=== PATIENT | female | born 1960 | race Caucasian/White ===

== ENCOUNTER 2019-07-25 11:57 | Inpatient (IN) | payer OTHER ==
[~2019-07-25] VITALS: Ht 157.4 cm; Wt 71.2 kg
[2019-07-25] MEDS ORDERED: FERROUS SULFAT325 MG PO (12:32)
[2019-07-25] MEDS ORDERED: PERPHENAZINE4 M1 PO (12:33)
[2019-07-25] MEDS ORDERED: GLUCOPHAGE500 M1 PO (12:34)
[2019-07-25] MEDS ORDERED: FLUVOXAMINE100 MG PO (12:36)
[2019-07-25] MEDS ORDERED: COGENTIN0.5 MG PO (12:39)
[2019-07-25] MEDS ORDERED: TRAZODONE50 MG PO (12:40)
[2019-07-25] MEDS ORDERED: SENOKOT8.6 MG PO (12:41)
[2019-07-25] MEDS ORDERED: ZOCOR20 MG PO (12:41)
[2019-07-25] MEDS ORDERED: LISINOPRIL20 MG PO (12:43)
[2019-07-25] MEDS ORDERED: MELATONIN3 M3 PO (12:43)
[2019-07-25] MEDS ORDERED: VISTARIL50 MG PO (12:44)
[2019-07-25] MEDS ORDERED: INVEGA SUSTENN234 MG IM (13:18)
[2019-07-25 15:32] VITALS: BP 117/86
--- NOTE | 2019-07-25 16:21 | NUR ---
DR PACK UPDATED ON NEW PT
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
[2019-07-25 17:10] LABS: BACTERIA TRACE; BILIRUBIN NEGATIVE (NEGATIVE); BLOOD NEGATIVE (NEGATIVE); CLARITY CLEAR (CLEAR); COLOR YELLOW (YELLOW); EPITHELIAL CELLS 16-20; GLUCOSE NEGATIVE (NEGATIVE); KETONE NEGATIVE (NEGATIVE); LEUKO ESTERASE NEGATIVE (NEGATIVE); NITRITE NEGATIVE (NEGATIVE); PH 7.5 (5.0-9.0); UROBILINOGEN 0.2 E.U./dl (0.2-1.0); WBC 0-2 wbc/hpf (0-5)
--- NOTE | 2019-07-25 17:51 | NUR ---
ZEINAB MOTA a 58 year old F admitted via stretcher from the ADMITTING as a emergency 72 hr. hold admission. Arrived on unit at 1525. ALLERGIES: NKA. Vital signs are: [id number] 117/86. The client signed the following forms with stated understanding: Authorization For The Release of Medical Information, Clothing List, Consent and Release Forms/Receipt of Rights, Acknowledgement of Advance Directive Information, Behavioral Health Consent Form, and Informed Consent of Medications. Patient was pink slipped to the senior behavioral health unit. Admitted under the services of Dr. BHAVESH MOSLEY,[facility]. A search was conducted and hazardous articles were removed. Client was oriented to the unit. BURAK ARANDA
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
[2019-07-25 20:00] VITALS: BP 118/61
--- NOTE | 2019-07-25 22:15 | NUR ---
P--ANXIETY, PREOCCUPIED WITH ANABAPTISM, HER CLOTHING AND GETTING A GUARDIAN I--DISCUSSED ALL MEDICATIONS. GAVE HER 1:1 TIME TO VENT. REVIEWED DAYS EVENTS ASSISTED WITH PM CARE SUPPLIES. OFFERED PM SNACK. CONFIRMED SHE WILL REVIEW ALL MEDICATIONS IN MORNING WITH DOCTOR OR FULL TIME. REASSURED HER SHE WOULD SEE CASEMANAGEMENT AND VISION THERAPIST R-I TAKE MORE MEDICINES THAN THIS. I NEED MELATONIN TO SLEEP. WHERE ARE MY CLOTHES, THEY STOLE MY CLOTHES FROM ME AT THE OTHER PLACE. I DON'T WANT TO GO BACK THERE. I NEED SOMEWHERE I CAN GET THE HELP I NEED AND BE ABLE TO GO OUT AND DO THINGS. I NEED A GUARDIAN AND TO TALK TO SOCIAL SERVICE AND CASEMANAGEMENT ABOUT WHERE TO LIVE AND OTHER THINGS. REFUSED PM SNACK PROVIDED. P--MONITOR FOR CHANGES IN MOOD/BEHAVIOR. MONITOR Q15 MIN AND PRN FOR SAFETY. BE AVAILABLE TO ALL SUPPORT NEEDS.
--- NOTE | 2019-07-25 22:15 | NUR ---
P--ANXIETY, PREOCCUPIED WITH ORTHODOX, HER CLOTHING AND GETTING A GUARDIAN I--DISCUSSED ALL MEDICATIONS. GAVE HER 1:1 TIME TO VENT. REVIEWED DAYS EVENTS. ASSISTED WITH PM CARE SUPPLIES. OFFERED PM SNACK. CONFIRMED SHE WILL REVIEW ALL MEDICATIONS IN MORNING WITH DOCTOR OR NET DEVELOPER ARCHITECT. REASSURED HER SHE WOULD SEE CASEMANAGEMENT AND MACHINE BASTER R-I TAKE MORE MEDICINES THAN THIS. I NEED MELATONIN TO SLEEP. WHERE ARE MY CLOTHES, THEY STOLE MY CLOTHES FROM ME AT THE OTHER PLACE. I DON'T WANT TO GO BACK THERE. I NEED SOMEWHERE I CAN GET THE HELP I NEED AND BE ABLE TO GO OUT AND DO THINGS. I NEED A GUARDIAN AND TO TALK TO SOCIAL SERVICE AND CASEMANAGEMENT ABOUT WHERE TO LIVE AND OTHER THINGS. REFUSED PM SNACK PROVIDED. P--MONITOR FOR CHANGES IN MOOD/BEHAVIOR. MONITOR Q15 MIN AND PRN FOR SAFETY. BE AVAILABLE TO ALL SUPPORT NEEDS.
--- NOTE | 2019-07-26 00:35 | NUR ---
DR DUBON NOTIFED OF MEDICAL MEDS NEEDING ORDERED.
--- NOTE | 2019-07-26 00:38 | NUR ---
DR DUBON NOTIFIED THAT MEDICAL MEDS NEED ORDERED
--- NOTE | 2019-07-26 02:10 | NUR ---
24 HR chart check completed.
--- NOTE | 2019-07-26 05:50 | NUR ---
SLEPT 4-5 HOURS BROKEN. DIFFICULTY WITH FALLING ASLEEP BUT APPEARED TO SLEEP WELL PAST 2AM
--- NOTE | 2019-07-26 05:56 | NUR ---
24 HR chart check completed.
[2019-07-26 06:04] LABS: ALBUMIN 3.4 gm/dl (3.1-4.5); ALKALINE PHOSPHATASE 66 U/L (45-117); BUN 11 mg/dl (7-24); CHLORIDE 107 mmol/L (98-107); CHOLESTEROL 158 mg/dL (<200); CREATININE 0.83 mg/dL (0.55-1.02); HDL CHOLESTEROL 74 mg/dl (40-60); LDL CHOLESTEROL 71 mg/dL (9-159); POTASSIUM 4.1 mmol/L (3.5-5.1); SGOT/AST 15 IU/L (3-35); SGPT/ALT 28 U/L (12-78); SODIUM 139 mmol/L (136-145); TOTAL PROTEIN 6.9 gm/dL (6.4-8.2); TRIGLYCERIDES 63 mg/dl (<150); VLDL CHOLESTEROL 13 mg/dL (6-40)
[2019-07-26 06:13] LABS: BASO # 0.1 10*3/uL (0.0-0.1); BASO % 1.2 % (0.0-1.0); EOS # 0.1 10*3/uL (0.0-0.4); EOS % 1.6 % (1.0-4.0); HEMATOCRIT 35.5 % (37.0-47.0); LYMPH # 2.2 10*3/uL (1.3-4.4); LYMPH % 38.7 % (27.0-41.0); MEAN CELL VOLUME 87.9 fl (81.0-99.0); MEAN CORPUSCULAR HGB 29.5 pg (27.0-31.0); MEAN CORPUSCULAR HGB CONC 33.5 g/dl (33.0-37.0); MEAN PLATELET VOLUME 9.7 fl (9.6-12.3); MONO # 0.5 10*3/uL (0.1-1.0); MONO % 7.8 % (3.0-9.0); NEUT # 2.9 10*3/uL (2.3-7.9); NEUT % 50.7 % (47.0-73.0); PLATELET COUNT AUTOMATED 280 10*3/uL (130-400); RED BLOOD COUNT 4.04 10*6/uL (4.10-5.10); WHITE BLOOD COUNT 5.8 10*3/uL (4.8-10.8)
[2019-07-26 07:17] VITALS: BP 104/62
--- NOTE | 2019-07-26 14:48 | NUR ---
PSYCHOSOCIAL HX COMPLETED THIS DATE.
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
[2019-07-26 20:02] VITALS: BP 107/69
--- NOTE | 2019-07-27 00:38 | NUR ---
P--PARANOID, GRANDIOSE, PREOCCUPIED I--DISCUSED DAYS EVENTS. PROVIDED 1:1 REDIRECTION IN CERTAIN AREAS NOT EFFECTIVE. REVIEWED MEDICATION. SNACK AN FLUIDS OFFERED. EMOTIONAL SUPPORT PROVIDED R--LOOK HER IN THE BIBLE IT SAYS TO COMB HAIR AND I WAS COMBING MY HAIR AT THE TIME I READ THIS. THIS HAPPENS ALL THE TIME. IT SHOWS GOD IS HERE PROTECTING ME. ALOT OF GUYS OUT THERE CAN HEAR MY VOICE AND IT TAKES THEM TO GOD. YES OTHERS OUT THERE CAN HEAR ME TALK. I HAD SUCH A GOOD DAY BECAUSE I TAKE MY BIBLE EVERYWHERE. IT HAS SAVED MY LIFE AT TIMES WHEN I HAVE BEEN IN THE HOSPITAL. I DON'T WANT TO GO BACK TO THAT PLACE, I WANT TO LIVE ON MY OWN. P--MONITOR FOR CHANGES IN MOOD/BEHAVIOR. MONITOR Q 15 IN AND PRN FOR SAFETY. REDIRECT CLIENT NEEDED.
--- NOTE | 2019-07-27 03:01 | NUR ---
24 HR chart check completed.
--- NOTE | 2019-07-27 05:36 | NUR ---
HAS BEEN SLEEPING SINCE 2230PM. MOVES SELF AROUND IN BED. NO PROBLEMS NOTED
--- NOTE | 2019-07-27 06:35 | NUR ---
HAS BEEN SLEEPING SINCE 2230PM. MOVES SELF AROUND IN BED. NO PROBLEMS NOTED
[2019-07-27 07:33] VITALS: BP 136/88
--- NOTE | 2019-07-27 08:56 | NUR ---
PHYSICAL THERAPY Nursing screen received and chart reviewed. Patient walking throughout BHU with steady gait, per nursing notes. Please order PT evaluation if decline in functional mobility presents. Thank you. Belle Boggs,PT,DPT
--- NOTE | 2019-07-27 09:53 | NUR ---
Nursing screen received and chart reviewed. Patient admitted from [facility] and per nursing notes is walking throughout unit with a steady gait. If patient has a decline in ADLs, please send OT orders. Thank you. Tressa Frausto, OTR/L
--- NOTE | 2019-07-27 11:00 | NUR ---
DR VALERO ON UNIT TO ASSESS PT, UPDATE PROVIDED.
--- NOTE | 2019-07-27 11:32 | NUR ---
AM GROUP PT WAS IN BED RESTING AT THE BEGINNING OF GROUP AND REFUSED ASSESSMENT OR TO ATTEND GROUP THERAPY. WILL ATTEMPT ASSESSMENT THIS AFTERNOON.
--- NOTE | 2019-07-27 11:46 | NUR ---
P: PT ISOLATIVE TO ROOM, REFUSING TO PARTICIPATE IN GROUPS/ACTIVITIES. PT MOOD IS DEPRESSED. PT LABILE GOING FROM HOEPLESS/HELPELESS AND DEPRESSED TO EUTHYMIC. PT ALSO OBSERVED TO BE LAUGHING INAPPROPRIATE AT TIMES. PT REGIOUSLY PREOCCUPIED, READING HER BIBLE CONTINOUSLY AND TELLING STAFF THAT GOD TALKS TO HER. I: PROVIDE EMOTIONAL SUPPORT AND 1:1 FOR PT TO VOICE FEELINGS, ENCOURAGE GROUP PARTICIPATION AND SOCIALIZTION, PRESENT REALITY AD RE-ORIENT NEEDED. R: PT ALERT TO PERSON, PLACE AND TIME, SOMEWHAT SITUATION. PT MED COMPLIANT WITHOUT DIFFICULTY, MED EDUCATION PROVIDED. PT CONTINUES TO REFUSE TO PARTICIPATE IN GROUPS/ACTIVITIES. PT MOOD REMAINS LABILE. PT AMBULATORY THROUGHOUT UNIT, GAIT STEADY. PT CONTINENT OF BOWEL AND BLADDER. PT DENIES ANY SUICIDAL THOUGHTS. PT REMAINS RELIGIOUSLY PREOCCUPOED. P: MONITOR PT BEHAVIORS ON Q15 MIN SAFETY CHECKS, ENCOURAGE MED COMPLIANCE AND PROVIDE MED EDUCATION, ENCOURAGE GROUP PARTICIPATION AND SOCIALIZATION, PRESENT REALITY AND RE-ORIENT NEEDED.
--- NOTE | 2019-07-27 15:40 | NUR ---
PM GROUP PT CHOSE NOT TO ATTEND AFTERNOON GROUP THERAPY. PT WAS IN BED RESTING.
--- NOTE | 2019-07-27 17:23 | NUR ---
MESSAGE LEFT FOR PT GUARDIAN TO RETURN CALL FOR CONSENT FOR ADMISSION, PT IS CURRENTLY HERE ON A PINK SLIP. WILL AWAIT A RETURN CALL.
--- NOTE | 2019-07-27 17:29 | NUR ---
PTS GUARDIAN, ROMA BALDWIN, RETURNED CALLED AND VERBAL CONSENTS RECEIVED, WITNESSED BY 2 GLENNY CASTREJON.
[2019-07-27 20:00] VITALS: BP 114/60
--- NOTE | 2019-07-28 03:34 | NUR ---
P-ISOLATIVE I-ASSESS ORIENTATION, MOOD, AND BEHAVIOR. PROVIDE 1:1 WITH THERAPEUTIC INTERVENTIONS. ENCOURAGE MEDICATION COMPLIANCE AND EDUCATE. MONITOR SLEEP. R- PATIENT ALERT AND ORIENTED X4. PT ISOLATIVE TO ROOM AND BED SINCE BEGINNING OF SHIFT, ONLY COMING DOWN FOR SNACK. PT CALM, COOPERATIVE, INTERACTIVE WITH STAFF. PT STATED THAT SHE WAS DOING GOOD TODAY AND ONLY WANTS TO DEAL WITH POSITIVE PEOPLE FROM NOW ON. SUPPORT PROVIDED. PT DENIES SI/HI, HALLUCINATIONS, OR PAIN. NO NOTED RESPONDING TO INTERNAL STIMULI. MEDICATION COMPLIANT WITHOUT DIFFICULTY AFTER REVIEW. PT AMBULATORY WITH A STEADY GAIT, INDEPENDENT IN ADL'S, CONTINENT OF BOWEL AND BLADDER. PT LAYING DOWN WITH EYES CLOSED, RESPIRATIONS EASY AND REGULAR, NO SIGNS OR SYMPTOMS OF DISTRESS NOTED. P-CONTINUE TO MONITOR MOOD AND BEHAVIORS. MAINTAIN Q 15 MIN CHECKS AND PRN FOR SAFETY.
--- NOTE | 2019-07-28 05:55 | NUR ---
PATIENT SLEPT APPROX 9 HOURS UNINTERRUPTED. NO SIGNS OR SYMPTOMS OF DISTRESS NOTED.
[2019-07-28 07:48] VITALS: BP 117/80
--- NOTE | 2019-07-28 08:00 | NUR ---
Patient sitting quietly. Respirations easy and regular. Vital signs stable. No overt distress. KENNEDY ALLISON
--- NOTE | 2019-07-28 11:34 | NUR ---
AM GROUP PT CHOSE NOT TO ATTEND MORNING GROUP THERAPY. PT WAS IN BED RESTING.
--- NOTE | 2019-07-28 15:31 | NUR ---
Treatment Plan meeting was held with Dr. Kim, INGA Dougherty, RN, AT, INFORMATION MANAGEMENT SPECIALIST-S and Electronics Hardware Design Engineer. Plan for discharge next week. Pt. will require alternate placement due to inability to return to Assisted.
--- NOTE | 2019-07-28 15:40 | NUR ---
PM GROUP PT ATTENDED AFTERNOON GROUP THERAPY AND PARTICIPATED BY READING HER BIBLE. PT WAS QUIET AND ON TASK. PT EXPRESSED NO DELUSIONS OR PARANOIA WHILE IN GROUP. PT IS LOUD AND INTRUSIVE, UNAWARE OF SOCIAL ETIQUETTE, BUT PLEASANT OTHERWISE.
--- NOTE | 2019-07-28 17:30 | NUR ---
PT RELIGIOUSLY PREOCCUPIED. CARRIES HER BIBLE UP AND DOWN THE HALLS. PT NOTED TELLING THE MEDICAL DOCTOR "I DON'T NEED TO TALK TO YOU. I HAVE GOD". PT ENCOURAGED TO PARTICIPATE IN GROUP THERAPY FOR SOCIALIZATION AND SUPPORT. PT ENCOURAGED TO SPEND TIME OUT OF ROOM. PT ENCOURAGED TO VERBALIZE ANY INTERNAL THOUGHT PROCESSES THEY OCCUR. PT STATES THAT "ALL I NEED IS PRAYER". PT HAS BEEN LESS ISOLATIVE THIS SHIFT, ATTENDING GROUP, BUT NOT ACTIVELY PARTICIPATING, INSTEAD READING THE BIBLE. PT HAS HAD NO OVERT S/S OF ATTENDING TO INTERNAL STIMULI. PT DOES STATE THAT SHE IS PARANOID PEOPLE ARE OUT TO GET HER. PT PROVIDED WITH 1:1 AND SUPPORT. Q15 MIN MONITORING PER POLICY. WILL CONTINUE TO ENCOURAGE SOCIALIZATION FOR PEER SUPPORT. WILL ENCOURAGE MEDICATION COMPLIANCE.
[2019-07-28 20:00] VITALS: BP 123/70
--- NOTE | 2019-07-28 23:02 | NUR ---
Patient alert and oriented x 4. Mood calm and cooperative. Denies SI/HI. Denies any hallucinations at this time. No signs of any responding to internal stimuli noted. Patient compliant with HS medications without any difficulty. Patient refused skin assessment to be done. Provided 1:1 for emotional support. Will continue to monitor moods/behaviors. Q 15 minute safety checks continued and maintained. See [facility] flowsheet for further documentation.
--- NOTE | 2019-07-29 01:45 | NUR ---
24 HR chart check completed.
--- NOTE | 2019-07-29 05:33 | NUR ---
Patient slept approx. 7 hours throughout shift. Q 15 minute safety checks continued and maintained.
--- NOTE | 2019-07-29 07:30 | NUR ---
Patient eating breakfast in dining room with peers at this time. Respirations easy and regular. Vital signs stable. No overt distress. ROSY BURT and team on unit to see pt at this time.
[2019-07-29 08:00] VITALS: BP 118/78
--- NOTE | 2019-07-29 08:30 | NUR ---
Treatment Plan meeting was held via Telephone with Dr. Kim, INGA Dougherty, RN, AT, EDITORIAL CARTOONIST-S and Dividend Clerk. Plan for discharge Next Week. Working on Care Home Placement For Patient.
--- NOTE | 2019-07-29 11:26 | NUR ---
INVEGA SUSTENNA 156MG IM TO RIGHT DELTOID, TOLERATED WELL.
--- NOTE | 2019-07-29 11:38 | NUR ---
AM GROUP PT ATTENDED MORNING GROUP THERAPY AND PARTICIPATED BY READING HER BIBLE. PT WAS QUIET AND KEPT TO HERSELF ONLY MAKING OCCATIONAL COMMENTS RELATIVE TO THE GROUP CONVERSATION. PT EXPRESSED NO DELUSIONS OR OVERLY GNOSTICISM STATEMENTS.
--- NOTE | 2019-07-29 13:39 | NUR ---
Met with pt individually. Pt voiced concern that she was not helping people enough as God would expect her to do. Discussed this further. Pt then changed the subject to where she is going to live and about her cat. Explained to pt that her guardian is requesting that another penitentiary be found for pt. Asked pt further about pt's cat and learned that pt has not had her cat for over a year from when she lived at [facility]. Pt states that she is not sure who has her cat. Informed pt that this commercial insurance underwriter will ask pt's guardian about the cat. Pt spoke briefly about her family and stated that she wants nothing to do with them. She also stated that she has no one but God and that is all that she wants.
--- NOTE | 2019-07-29 15:39 | NUR ---
PM GROUP/DREAM CATCHERS PT ATTENDED GROUP FOR A SHORT PERIOD AND CHOSE NOT TO PARTICIPATE. PT SAT AT A TABLE AND STATED, "I DON'T WANT TO GO BACK TO A HALFWAY. I WANT AN APARTMENT OF MY OWN. I WOULD EAT [employer]NE [employer]US[employer] AND [employer] PIZZA." PT GOT UP AND LEFT THE DAYROOM AND DID NOT RETURN.
--- NOTE | 2019-07-29 16:08 | NUR ---
Shift chart check completed.
--- NOTE | 2019-07-29 16:24 | NUR ---
P- Isolative/withdrawn, religiously preoccupied I- Orientation, mood and behaviors assessed. Assessed pt for SI/HI, intent or plan. Assessed pt for s/s hallucinations, paranoia and/or delusions. Medications administered as per physician's orders. Assistance with ADL care provided as needed. Encouraged pt to attend and participate in rico milieu groups and activities. R- Pt is A&Ox4. Memory appears to be intact. Resps easy and even on room air. Mood is stable, affect broad range. Speech is WNL and coherent, able to make needs known without difficulty. Pt denies SI/HI, intent or plan. Pt denies hallucinations, no response to internal sitmuli noted. No paranoia noted. Pt continues to be religiously preoccupied. Pt is medication compliant without difficulty. Pt recieved Invega Sustenna 156mg injection today, pt states "I'm so glad I get that shot today, it really helps me". Pt remains isolative/withdrawn, pt encouraged to come to groups. Pt attended groups today but kept to self in the corner of the room reading her Bible. No aggressive behaviors. No distress noted. P- Plan to continue current tx, continue to monitor mood and behaviors, provide appropriate reorientation, redirection and 1:1 as needed. Continue to encourage medication compliance as well as group attendance and participation.
[2019-07-29 19:02] VITALS: BP 105/63
--- NOTE | 2019-07-29 22:13 | NUR ---
Patient alert and oriented x 4. Mood calm and cooperative. Denies SI/HI. Denies any hallucinations at this time. No signs of any responding to internal stimuli noted. Patient isolative to self to her room and only coming out for snacks. Patient compliant with HS medications without any difficulty. Patient refused skin assessment to be done. Provided 1:1 for emotional support. Will continue to monitor moods/behaviors. Q 15 minute safety checks continued and maintained. See [facility] flowsheet for further documentation.
--- NOTE | 2019-07-30 00:18 | NUR ---
24 HR chart check completed.
--- NOTE | 2019-07-30 05:25 | NUR ---
Patient slept approx. 5 hours throughout shift. Q 15 minute safety checks continued and maintained.
[2019-07-30 07:44] VITALS: BP 107/63
--- NOTE | 2019-07-30 08:00 | NUR ---
Patient in dining room with peers. Respirations easy and regular. Vital signs stable. No overt distress. KENNEDY ALLISON
--- NOTE | 2019-07-30 08:30 | NUR ---
Treatment Plan meeting was held via Telephone with Dr. Kim, RN, AT, INJECTION MOLDING MACHINE SETTER-S and Key Person. Plan for discharge Next week or Week after. Pt. requires alternate [facility] Setting.
--- NOTE | 2019-07-30 09:40 | NUR ---
DR. VALERO AND TEAM ON UNIT TO ASSESS PT AT THIS TIME.
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
--- NOTE | 2019-07-30 11:14 | NUR ---
Spoke to Shahriar Velasco, guardian of pt. Informed him that Odilia from [facility] was inquiring about pt's payer source. Provided Shahriar with contact information for Odilia. Shahriar stated that he would call her today. Also Shahriar provided update about Romaine, pt's previous cat. This public relations writer will share the update with pt.
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
--- NOTE | 2019-07-30 14:25 | NUR ---
PT IN GROUP AT THIS TIME. OFFERS NO COMPLAINTS. KENNEDY ALLISON RN
--- NOTE | 2019-07-30 14:57 | NUR ---
PT RELIGIOUSLY PREOCCUPIED, FIXATED ON HER CAT, AND PARANOID ABOUT FAMILY STEALING HER MONEY. PT ENCOURAGED TO PARTICIPATE IN GROUP THERAPY FOR SOCIALIZATION AND SUPPORT. PT ENCOURAGED TO SPEND TIME OUT OF ROOM. PT ENCOURAGED TO VERBALIZE ANY INTERNAL THOUGHT PROCESSES THEY OCCUR. PT RECEPTIVE TO 1:1. STATES THAT SHE IS UPSET ABOUT HAVING A GUARDIAN, STATING "ONLY GOD IS THE INTEGRATED MARKETING INTERN. DOES EVERYONE KNOW THAT? ONLY GOD IS THE INTEGRATED MARKETING INTERN". PT ALSO REQUESTING TO VISIT HER CAT, STATING "WE BOTH NEED TO SEE EACH OTHER". PT ASKING TO LEAVE TO SEE THE CAT OR FOR THE CAT TO COME HERE, EDUCATED ON UNIT AND HOSPITAL POLICIES, RECEPTIVE AT THIS TIME. PT ALSO DISCUSSING PARANOIA OVER FAMILY STEALING FROM HER MONTHLY CHECKS, PT ABLE TO REDIRECT SELF STATING "I'M NOT GOING BACK THERE ANYWAY". EMOTIONAL SUPPORT PROVIDED. Q15 MIN MONITORING PER POLICY. WILL CONTINUE TO ENCOURAGE SOCIALIZATION FOR PEER SUPPORT. WILL ENCOURAGE MEDICATION COMPLIANCE.
--- NOTE | 2019-07-30 15:29 | NUR ---
PM GROUP/ART AND MUSIC PT ATTENDED AFTERNOON GROUP THERAPY AND PARTICIPATED BY READING HER BIBLE AND CONVERSING WITH A PEER. PT IS VERY LOUD AND INTRUSIVE. PT EXPRESSED PARANOID DELUSIONS INVOLVING JAM GOSS AND PEOPLE STEALING HER EARRINGS AND CAT.
[2019-07-30 20:00] VITALS: BP 118/70
--- NOTE | 2019-07-30 23:00 | NUR ---
P-ISOLATIVE, RESTORATIONIST PREOCCUPATION I-1:1 PROVIDED, REDIRECT, ADMINISTER MEDS, MONITOR SLEEP R-PT ISOLATIVE TO HER ROOM & READING HER BIBLE, ASKING RN ABOUT PERSONAL RESTORATIONIST BELIEFS. RECEPTIVE TO REDIRECTION. ALERT & ORIENTED X 4. PLEASANT INTERACTIONS. ALSO TALKED ABOUT HER CAT, LUKE & STATED THAT SHE JUST FOUND OUT HE HAS BEEN FOUND AFTER A YEAR & A HALF. CAME TO DINING ROOM BRIEFLY & ATE SNACK. COMPLIANT WITH MEDICATIONS. CONTINUES TO REFUSE SKIN ASSESSMENT. INDEPENDENT WITH ADLS P-CONTINUE TO MONITOR & REDIRECT NEEDED.
--- NOTE | 2019-07-31 00:32 | NUR ---
24 HR chart check completed.
--- NOTE | 2019-07-31 05:22 | NUR ---
PT SLEPT 2303
[2019-07-31 07:55] VITALS: BP 114/67
--- NOTE | 2019-07-31 08:30 | NUR ---
Treatment Plan meeting was held via Telephone with Dr. Kim, RN, At, [facility] and Yarder. Plan for discharge is uncertain at this time. Dr. Kim is aware that Pt. is essentially Homeless. She is unable to return to the [facility] that she was living in Prior to Admit to [facility]. Pt. Guardian has requested that Pt. remain in [facility]. [facility] is the only other [place] [facility] Listed on Residential List available. Will Work with Guardian on alternate Placement.
--- NOTE | 2019-07-31 10:45 | NUR ---
Left Message for Odilia Jenkins at [facility] to follow Referral and Discuss Discharge Planning and Inquire if she had spoken to the Legal Guardian About possible Admission.
--- NOTE | 2019-07-31 11:37 | NUR ---
AM GROUP PT DID NOT ATTEND MORNING GROUP THERAPY. PT WAS IN BED RESTING.
--- NOTE | 2019-07-31 14:17 | NUR ---
Facetime interview Set up with Ceci hurt for 2:00 p.m. for Odilia from facility to meet patient face to face.
--- NOTE | 2019-07-31 15:00 | NUR ---
Facilitated Phone Interview with Patient and Odilia from [facility]. Will Follow with Odilia on Saturday for follow up.
--- NOTE | 2019-07-31 15:33 | NUR ---
PM GROUP PT ATTENDED AFTERNOON GROUP THERAPY LATE AND PARTICIPATED BY READING HER BIBLE. PT WAS VERY EXCITED AT THE PROSPECT OF FINDING A HOME. PT EXPRESSED NO GRANDIOSITY BUT DID STATE, "ALDEN, PEOPLE ARE TRYING TO KILL ME. THEY ARE SAYIGN THAT MY CAT IS AT A FARM AND THEY ARE TRYING TO TRICK ME INTO GOING THERE SO THEY CAN KILL ME." PT WAS REASSURED AND WAS CONTENT WITH THAT.
--- NOTE | 2019-07-31 18:17 | NUR ---
pt more isolative this shift. pt spent much of shift in her room reading her Bible. pt does discuss her excitement at finding a new home and that she is hopeful this place will work out for her. pt has expressed no grandiose delusions or hallucinations this shift. pt is pleasant and cooperative at this time. medication compliant without difficulty. showered independently today. q 15 min monitoring per policy for safety.
[2019-07-31 19:35] VITALS: BP 112/81
--- NOTE | 2019-07-31 19:38 | NUR ---
24 HR chart check completed.
--- NOTE | 2019-07-31 20:39 | NUR ---
P-ORTHODOX PREOCCUPATION I-1:1 PROVIDED, REDIRECT, ADMINISTER MEDS, MONITOR SLEEP R-PT MORE SOCIAL READING HER BIBLE TO HERSELF WHILE SITTING IN THE DINING ROOM. AGAIN ASK THIS RN ABOUT HER ORTHODOX BELIEFS & HAD TO BE REDIRECTED & WAS RECEPTIVE. ALERT & ORIENTED X 4. PLEASANT INTERACTIONS & ELATED AT TIMES WHEN SPEAKING TO STAFF. ATE SNACK. COMPLIANT WITH MEDICATIONS. CONTINUES TO REFUSE SKIN ASSESSMENT. INDEPENDENT WITH ADLS. P-CONTINUE TO MONITOR & REDIRECT NEEDED.
--- NOTE | 2019-08-01 05:38 | NUR ---
PT HAS SLEPT PAST 29
[2019-08-01 07:44] VITALS: BP 131/82
--- NOTE | 2019-08-01 07:45 | NUR ---
Patient eating breakfast in dining room with peers. Respirations easy and regular. Vital signs stable. No overt distress. ORSY BURT
--- NOTE | 2019-08-01 10:23 | NUR ---
P- Isolative/withdrawn, remains religiously preoccupied, mood appears slightly depressed, pt states "I feel like I'm in a world of my own, like no one understands me". I- Orientation, mood and behaviors assessed. Assessed pt for SI/HI, intent or plan. Assessed for s/s hallucinations, paranoia and/or delusions. Medications administered as per physician's orders. Encouraged pt to attend and participate in rico milieu. Pt is independent with ADL care. R- Pt is alert and oriented x4. Mood appears slightly depressed, pt states "I feel like I'm in a world of my own, like no one understands me". Pt made minimal eye contact with this RN during interview this AM. Affect blunted. Speech is WNL and coherent, able to make needs known without difficulty. Pt denies feelings of hopelessness. Pt denies SI/HI, intent or plan. Pt denies hallucinations, no response to internal stimuli noted. Pt is medication compliant without difficulty. Isolative/withdrawn this morning, napping intermittently in her room. Pt continues to be religiously preoccupied at times, however, pt is calm, pleasant and cooperative. No distress noted. P- Plan to continue current treatment, continue to monitor mood and behaviors, provide appropriate reorientation, redirection and 1:1 as needed.
[2019-08-01 19:25] VITALS: BP 104/54
--- NOTE | 2019-08-01 20:22 | NUR ---
24 HR chart check completed.
--- NOTE | 2019-08-01 21:00 | NUR ---
P-ISOLATIVE, SAMARITAN PREOCCUPATION I-1:1 PROVIDED, ADMINISTER MEDS, MONITOR SLEEP R-PT SAT IN THE DINING ROOM THIS EVENING AT A TABLE BY HERSELF READING HER BIBLE. ALERT & ORIENTED X 4. PLEASANT INTERACTIONS. STATES SHE IS EXCITED FOR SATURDAY TO GET HERE BECAUSE SHE GETS TO GO TO HER NEW PLACE. KEPT TO HERSELF THIS EVENING. NOTED TO ROCK BACK & FORTH WHILE SITTING IN BED. DENIED FEELING ANXIOUS & STATED SHE HAS ALWAYS DONE THAT, "IT CALMS ME". ATE SNACK. COMPLIANT WITH MEDICATIONS. CONTINUES TO REFUSE SKIN ASSESSMENT. INDEPENDENT WITH ADLS. P-CONTINUE TO MONITOR & REDIRECT NEEDED.
--- NOTE | 2019-08-02 06:03 | NUR ---
PT WENT TO HER ROOM APPROX 2100 & SAT UP QUIETLY READING HER BIBLE UNTIL SHE WENT TO SLEEP @ 0015.
[2019-08-02 07:20] VITALS: BP 130/82
--- NOTE | 2019-08-02 07:33 | NUR ---
Patient resting quietly with no c/o discomfort. Respirations easy and regular. Vital signs stable. No overt distress. ROSY BURT
--- NOTE | 2019-08-02 10:45 | NUR ---
and team on unit to see pt at this time.
[2019-08-02 19:48] VITALS: BP 100/72
--- NOTE | 2019-08-03 01:54 | NUR ---
P: Sikhism Delusions, I: Medications, redirections, offer distractions, snacks R: Continues to read and highlight in her bible this evening, pt also restless and awake this evening in her room, with lights on and rockin in her bed while going through bible. Easily redirected for snack and interaction when approached. Able to hold conversation without preoccupation or grandiouse reactions P: continue to monitor at this time, 15 min checks, therapy, medication education. Assessing pt alertness and function. Pt went to sleep at approx 0200. Gait remains steady, medication ocmpliant
--- NOTE | 2019-08-03 02:06 | NUR ---
Pt recieved shower earlier in shift and permitted body assessment. No areas of concern noted
--- NOTE | 2019-08-03 05:13 | NUR ---
Patient slept approx. 3 hours throughout shift. Q 15 minute safety checks continued and maintained.
[2019-08-03 07:14] VITALS: BP 130/80
--- NOTE | 2019-08-03 08:30 | NUR ---
Treatment Plan meeting was held via Telephone with Dr. Kim, INGA Dougherty, RN, AT and Ophthalmology Assistant. Plan for discharge Saturday if Placement Secured. Ceci Cruz is still negotiating with Pt. Legal Guardian for placement due to Financial.
--- NOTE | 2019-08-03 10:37 | NUR ---
DR. VALERO ON UNIT TO ASSESS PATIENT.
--- NOTE | 2019-08-03 11:10 | NUR ---
Spoke with Odilia at [facility]. She is waiting communications lead back at this time from Pt. Legal Guardian Shahriar. Advised of Dr. Kim Plan to discharge on Saturday. Odilia states that she will call back once she speaks with Guardian.
--- NOTE | 2019-08-03 11:40 | NUR ---
AM GROUP PT ATTENDED MORNING GROUP THERAPY AND PARTICIPATED BY READING HER BIBLE. PT WAS QUIET AND KEPT TO HERSELF. PT WAS NOTED TO BE ROCKING IN HER CHAIR. PT EXPRESSED NO DELUSIONS OR OVERLY RELIGION STATEMENTS WHILE IN GROUP.
--- NOTE | 2019-08-03 14:05 | NUR ---
PT IS ALERT, ORIENTED X4. PLEASANT, COOPERATIVE WITH ASSESSMENT. PT MOOD IS STABLE. JEWISH PREOCCUPATION HAS DIMINISHED AND PT IS ABLE TO APPROPRIATELY INTERACT WITH STAFF AND PEERS. DENIES SI/HI, INTENT OR PLAN. APPETITE IS GOOD, PT IS MEDICATION COMPLIANT WITHOUT DIFFICULTY. Q15 MIN MONITORING PER POLCIY FOR SAFETY.
--- NOTE | 2019-08-03 15:23 | NUR ---
Shift chart check completed.
--- NOTE | 2019-08-03 15:36 | NUR ---
PM GROUP/MANICURES AND MUSIC PT ATTENDED AFTERNOON GROUP THERAPY BUT CHOSE NOT TO HAVE HER NAILS DONE. PT LISTENED TO THE MUSIC AND WAS NOTED THIS MORNING TO BE ROCKING IN HER CHAIR. PT WAS QUIET AND EXPRESSED NO DELUSIONS OR YARSANI OVERTONES.
[2019-08-03 19:31] VITALS: BP 118/74
--- NOTE | 2019-08-03 21:40 | NUR ---
Patient alert and oriented x 4. Mood calm and cooperative. Denies SI/HI. Denies any hallucinations at this time. No signs of any responding to internal stimuli noted. Patient was in dining room for snacks and was more interactive with staff and other patients. Patient compliant with HS medications without any difficulty. Patient refused skin assessment to be done. Provided 1:1 for emotional support. Will continue to monitor moods/behaviors. Q 15 minute safety checks continued and maintained. See [facility] flowsheet for further documentation.
--- NOTE | 2019-08-04 06:12 | NUR ---
Patient slept approx. 8 hours throughout shift with a few awakenings. Q 15 minute safety checks continued and maintained.
[2019-08-04 07:41] VITALS: BP 122/76
--- NOTE | 2019-08-04 08:30 | NUR ---
Treatment Plan meeting was held via telephone with Dr. Kim, INGA Dougherty, RN, AT, EXTENDED DAY TEACHER-S and Boiling Tub Operator. Plan for discharge Saturday if bed secured at [facility].
--- NOTE | 2019-08-04 11:40 | NUR ---
AM GROUP/MUSIC AND MY PT ATTENDED MORNING GROUP THERAPY AND PARTICIPATED BY READING HER BIBLE. PT WAS FOCUSED AND QUIET. PT EXPRESSED NO GRANDIOSITY NOR PENTECOSTALISM IDEATIONS WHILE IN GROUP.
--- NOTE | 2019-08-04 13:49 | NUR ---
No adverse moods or behaviors this shift. Pt is A+Ox4. Memory appears to be intact. Resps easy and even on room air. Mood appears stable, affect broad range and appropriate. Speech is WNL and coherent, able to make needs known without difficulty. Pt denies SI/HI, intent or plan. Pt reports occasionally hearing voices and some residual paranoia but states these are normal for her at her baseline. Pt denies pain/discomfort. Pt is medication compliant without difficulty. Interacts appropriately with staff and peers. No distress noted. Plan to continue current tx, continue to monitor mood and behaviors, provide appropriate reorientation, redirection and 1:1 as needed. Continue to encourage med compliance as well as group attendance and participation.
--- NOTE | 2019-08-04 16:05 | NUR ---
Shift chart check completed.
[2019-08-04 20:00] VITALS: BP 107/51
--- NOTE | 2019-08-04 22:45 | NUR ---
NO ADVERSE MOODS OR BEHAVIORS NOTED THIS SHIFT. PATIENT IS ALERT AND ORIENTED X4. MEMORY SEEMS TO BE INTACT. PATIENT STATED "I AM DOING REALLY GOOD TODAY. YOU KNOW I AM READING SOME GOOD STUFF IN MY BIBLE AND IT IS HELPING ME APPRECIATE MY LIFE EVEN MORE". SLIGHTLY EUTHYMIC. DENIES SI/HI, HALLUCINATIONS, OR PAIN. NO S/S OF INTERACTING WITH INTERNAL STIMULI. NO DELUSIONAL THOUGHT PROCESS NOTED. NO S/S OF DISTRESS NOTED, RESPS EVEN AND UNLABORED ON ROOM AIR. PATIENT REMAINS ISOLATIVE TO HER ROOM; SHE DID COME DOWN FOR SNACK, INTERACTED WITH STAFF AND PEERS, THEN WENT RIGHT BACK TO HER ROOM. MED COMPLIANT WITH EDUCATION PROVIDED ON EACH. SHOWERED. VOICES NEEDS. Q15 MINUTE CHECKS MAINTAINED FOR SAFETY.
--- NOTE | 2019-08-04 23:52 | NUR ---
24 HR chart check completed.
--- NOTE | 2019-08-05 06:55 | NUR ---
PATIENT SLEPT APPROXIMATELY 5 HOURS NOTED ON Q15 MINUTE CHECKS. NO S/S OF DISTRESS NOTED. RESPS EVEN AND UNLABORED ON ROOM AIR.
[2019-08-05 07:22] VITALS: BP 134/84
--- NOTE | 2019-08-05 07:40 | NUR ---
Met with pt this AM individually. Discussed pt's status. Pt reports that she is feeling "great." Discussed discharge plan. Spoke to pt about moving to [facility]. Informed pt that due to COVID 19 precautions, pt will need to isolate for 14 days in a private room. Further explained to pt that also because of COVID, pt will not have the freedoms of going out into the public and doing things until restrictions have been lifted. Pt voiced understanding. Pt did state that she hopes that she can at least see maria growing outside from her window. Pt was appropriate in conversation. No delusions or hallucinations were voiced during interaction.
[2019-08-05] MEDS ORDERED: INVEGA SUSTENN156 MG IM (07:47)
[2019-08-05] MEDS ORDERED: DIVALPROEX SOD500 MG PO (07:47)
[2019-08-05] MEDS ORDERED: MIRTAZAPINE15 M2 PO (07:47)
[2019-08-05] MEDS ORDERED: DIVALPROEX SOD250 MG PO (07:47)
[2019-08-05] MEDS ORDERED: HYDROXYZINE HCL25 MG PO (07:47)
[2019-08-05] MEDS ORDERED: BENZTROPINE MESY1 MG PO (07:47)
--- NOTE | 2019-08-05 08:00 | NUR ---
Patient eating breakfast in dining room with peers. Respirations easy and regular. Vital signs stable. No overt distress. ROSY BURT PHMNP-BC & updated on pt progress.
--- NOTE | 2019-08-05 08:30 | NUR ---
TREATMENT PLAN MEETING WAS HELD VIA TELEPHONE WITH DR. OSPINA, INGA WYMAN, RN, AT, CUT AND PRINT MACHINE OPERATOR-S AND RESAW FEEDER. PLAN FOR DISCHARGE SATURDAY. PT. WILL RETURN TO [facility].
--- NOTE | 2019-08-05 09:35 | NUR ---
LEFT MESSAGE FOR PT. HAIR DRESSER AT [facility] TO DISCUSS DISCHARGE PLANS AND COORDINATION OF CARE AND ADMISSION TO [facility]. [phone].
--- NOTE | 2019-08-05 10:30 | NUR ---
and team on unit to see pt at this time. Made aware pt to be discharged today or tomorrow depending on finalization of discharge plan.
--- NOTE | 2019-08-05 11:26 | NUR ---
NO ADVERSE MOODS OR BEHAVIORS THIS SHIFT. PT IS A+OX4. MEMORY APPEARS TO BE INTACT. RESPS EASY AND EVEN ON ROOM AIR. MOOD IS STABLE, EUTHYMIC, AFFECT IS BROAD RANGE AND APPROPRIATE. SPEECH IS WNL AND COHERENT, ABLE TO MAKE NEEDS KNOWN WITHOUT DIFFICULTY. PT DENIES SI/HI, INTENT OR PLAN. PT DENIES HALLUCINATIONS, NO RESPONSE TO INTERNAL STIMULI NOTED. NO PARANOIA OR DELUSIONS NOTED. PT IS PLEASANT, CALM AND COOPERATIVE. PT ENJOYS READING HER BIBLE FREQUENTLY THROUGHOUT THE SHIFT. PT IS LOOKING FORWARD TO BEING DISCHARGED TODAY OR TOMORROW. NO DISTRESS NOTED. PLAN TO CONTINUE CURRENT TX, CONTINUE TO MONITOR MOOD AND BEHAVIORS, PROVIDE APPROPRIATE REORIENTATION, REDIRECTION AND 1:1 NEEDED. CONTINUE TO ENCOURAGE MEDICATION COMPLIANCE WELL GROUP ATTENDANCE AND PARTICIPATION.
--- NOTE | 2019-08-05 11:41 | NUR ---
AM GROUP/SOCIALIZATION PT ATTENDED MORNING GROUP THERAPY AND PARTICIPATED BY SOCIALIZING WITH THIS CUSTOMER SERVICE SALES CONSULTANT AND A MALE PEER. PT HAS NO CONCEPT OF SOCIAL ETTIQUETTE. PT SPEAKS LOUDLY AND INTERUPTS OTHERS WHEN THEY ARE SPEAKING. PT ALSO SPEAKS OUT OF CONTEXT, MOSTLY WITH LATTER DAY UNDERTONES. PT EXPRESSED NO PARANOIA OR GRANDIOSITY WHILE IN GROUP.
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
--- NOTE | 2019-08-05 15:26 | NUR ---
Call placed to [facility]. Pt. Mercury Cell Cleaner is off today and will return tommorow.
--- NOTE | 2019-08-05 15:32 | NUR ---
KATY SHANNON/MY PT ATTENDED AFTERNOON GROUP THERAPY AND PARTICIPATED BY READING HER BIBLE AND LISTENING TO MUSIC. PT WAS QUIET AND FOCUSED. PT EXPRESSED NO DELUSIONS WHILE IN GROUP.
--- NOTE | 2019-08-05 18:24 | NUR ---
SHIFT CHART CHECK COMPLETED.
[2019-08-05 19:39] VITALS: BP 135/74
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
--- NOTE | 2019-08-06 02:22 | NUR ---
MOVES SELF IN BED. NO DISTRESS NOTED. 24 HR chart check completed.
--- NOTE | 2019-08-06 05:39 | NUR ---
SLEPT APPROX 7.5 BROKEN HOURS. MOVES SELF IN BED. NO DISTRESS NOTED
--- NOTE | 2019-08-06 06:42 | NUR ---
REMAINS SLEEPING AT THIS TIME.
[2019-08-06 07:42] VITALS: BP 130/70
--- NOTE | 2019-08-06 08:15 | NUR ---
Treatment Plan meeting was held via telephone with Dr. Kim, RN, AT, AUTOMATION MACHINE BUILDER-S and Stable Cleaner. Plan for discharge once bed is secure at [facility]. Dr. Kim is aware that patient [employer] [facility] Crystal Mounter, Legal Guardian and Primary Care Provider have to coordinate the admission process.
--- NOTE | 2019-08-06 10:38 | NUR ---
SPOKE WITH DR OSPINA AND ADVISED OF CHANGE IN DISCHARGE PLANS DUE TO AVALIABILITY OF PTS GURADIAN.
--- NOTE | 2019-08-06 10:45 | NUR ---
Spoke with Markus Diamond Pt. Machine Design Teacher at [facility] via telephone and Provided her with the Contact information for Odilia Jenkins at [facility] to Coordinate Admission Process to [facility]. Markus states that she will call once coordinated.
--- NOTE | 2019-08-06 10:50 | NUR ---
DR VALERO AND TEAM ON UNIT TO ASSESS PT, UPDATE PROVIDED.
--- NOTE | 2019-08-06 11:31 | NUR ---
AM GROUP PT ATTENDED MORNING GROUP THERAPY AND PARTICIPATED BY SOCIALIZING WITH THIS RESEARCH TECHNICIAN AND READING HER BIBLE. PT EXHIBITED NO ADVERSE BEHAVIORS WHILE IN GROUP.
--- NOTE | 2019-08-06 12:28 | NUR ---
P: PT ISOLATIVE TO ROOM AT TIMES THROUGHOUT THE DAY. PT CAN BE IRRITABLE WITH STAFF AT TIMES. I: PROVIDE EMOTIONAL SUPPORT AND 1:1 FOR PT TO VOICE FEELINGS, ENCOURAGE MED COMPLIANCE, ENCOURAGE GROUP PARTICIPATION AND SOCIALIZATION R: PT ALERT TO PERSON, PLACE, TIME AND SITUATION. PT MED COMPLIANT WITHOUT DIFFICULTY, MED EDUCATION PROVIDED. PT CALM, MOOD IS STABLE, PT REMAINS IRRITABLE AT TIMES. PT REFUSED TO PARTICIPATE IN MORNING GROUP. NO HALLUCINATIONS OR DELUSIONS NOTED AT THIS TIME. PT DENIES ANY SUICIDAL THOUGHTS. PT AMBULATORY THROUGHOUT UNIT, GAIT STEADY. PT CONTINENT OF BOWEL AND BLADDER. P: MONITOR PT BEHAVIORS ON Q15 MIN SAFETY CHECKS, ENCOURAGE MED COMPLIANCE AND PROVIDE MED EDUCATION, ENCOURAGE GROUP PARTICIPATION AND SOCIALIZATION, PROVIDE EMOTIONAL SUPPORT AND 1:1 FOR PT TO VOICE FEELINGS.
--- NOTE | 2019-08-06 13:00 | NUR ---
Spoke with Odilia from [facility] this AM. Odilia stated that she is needing pt's [place] correctional counselor/case manager, pt's guardian, and pt's physician to complete and sign paperwork before pt can discharge to the snf. Odilia stated that the guardian is not available until Saturday. Because of the unavailability of the guardian and possibly the correctional counselor/case manager until next week as well as coordinating the signatures, Odilia believes that she will not be ready for pt until Saturday. Informed nursing of this.
--- NOTE | 2019-08-06 13:06 | NUR ---
Met with pt this AM and provided pictures of Ceci Cruz that the truckload owner operator had sent to this racebook writer's cell phone. Pt was pleased to see the pictures. Explained to pt that paperwork is needing to be completed by pt's guardian and supervisor case loading prior to pt discharging to the correction. Further explained that this will drive pt's discharge date. Pt asked if she would remain here through the weekend, and this racebook writer confirmed that most likely pt would. Pt appeared to accept this well. Pt remarked again about the pictures and stated that the correction looks much nicer than where she was living. Pt did not voice any delusional statements during interaction with this racebook writer.
--- NOTE | 2019-08-06 15:32 | NUR ---
AM GROUP PT WAS LATE COMING TO GROUP. PT SAT AT A TABLE AND READ HER BIBLE. PT CONSTANTLY ROCKS IN HER SEAT. PT EXPRESSED NO DELUSIONS WHILE IN GROUP
[2019-08-06 19:47] VITALS: BP 132/72
--- NOTE | 2019-08-06 20:36 | NUR ---
24 HR chart check completed.
--- NOTE | 2019-08-06 23:38 | NUR ---
P-ISOLATIVE I-1:1 PROVIDED, ADMINISTER MEDS, MONITOR SLEEP R-ISOLATIVE IN ROOM READING HER BIBLE. ALERT & ORIENTED X 4. PLEASANT INTERACTIONS. CONTINUES TO ROCK BACK & FORTH FOR SELF COMFORT. CAME TO DINING ROOM BRIEFLY & ATE SNACK. COMPLIANT WITH MEDICATIONS. CONTINUES TO REFUSE SKIN ASSESSMENT. INDEPENDENT WITH ADLS. P-CONTINUE TO MONITOR & REDIRECT NEEDED.
--- NOTE | 2019-08-07 05:14 | NUR ---
PT HAS SLEPT PAST 0100
[2019-08-07 07:39] VITALS: BP 118/70
--- NOTE | 2019-08-07 11:35 | NUR ---
AM GROUP PT ATTENDED MORNING GROUP THERAPY AND PARTICIPATED BY READING HER BIBLE. PT WAS QUIET AND ON TASK. PT EXHIBITED NO ADVERSE BEHAVIORS WHILE IN GROUP.
--- NOTE | 2019-08-07 11:56 | NUR ---
NO ADVERSE MOODS OR BEHAVIORS NOTED AT THIS TIME. PT ALERT TO PERSON, PLACE, TIME AND SITUATION. PT MED COMPLIANT WITHOUT DIFFICULTY, MED EDUCATION PROVIDED. PT CALM, MOOD IS STABLE. PT REMAINS ISOLTIVE TO ROOM AT TIMES THROUGHTOUT THE DAY, STAFF ENCOURAGES GROUP PARTICIPATION AND SOCIALIZATION, PT CHOOSES TO SIT BY HERSELF AND READ HER BIBLE. PT REPORTS TO MARIANELA MERCADO PLATE PAINTER APPRENTICE FEELNG PARANOID AT TIMES, NO OVERT S/S OF PARANOIA NOTED.NO HALLUCINATIONS NOTED. PT DENIES ANY SUICIDAL THOUGHTS OR BEAHVIORS. PT AMBULATORY THROUGHOUT UNIT, GAIT STEADY. PT CONTINENT OF BOWEL AND BLADDER. PLAN IS TO MONITOR PT BEHAVIORS ON Q15 MIN SAFETY CHECKS, ENCOURAGE MED COMPLIANCE AND PROVIDE MED EDUCATION, ENCOURAGE GROUP PARTICIPATION AND SOCIALIZATION, PROVIDE EMOTIONAL SUPPORT AND 1:1 FOR PT TO VOICE FEELINGS.
--- NOTE | 2019-08-07 12:04 | NUR ---
Treatment Plan meeting was held via Telephone with Dr. Kim, INGA Dougherty, RN, AT, CONTROLS DESIGNER-S and Machine Shop Inspector. Plan for discharge Saturday. Pt. will go to [facility]. Coordination of Admission to be done by Guardian, [employer] [facility].
--- NOTE | 2019-08-07 14:44 | NUR ---
Received a call from Stephanie, a visiting nurse, requesting status of pt's discharge. Explained to Stephanie that there is no record that pt has VNA services, so this tag writer is unable to provide information. Stephanie requested that this tag writer phone Elizabeth at [facility] in order to inform Elizabeth of pt's discharge. Per Stephanie, Elizabeth is unsure if pt is returning there. Left a message for Elizabeth.
--- NOTE | 2019-08-07 15:10 | NUR ---
Spoke with Elizabeth of [facility] and confirmed that pt will not be returning there. Per Elizabeth, she is returning an unopened package of pt's scripts to the pharmacy that the [facility] uses, so pt will need new scripts upon discharge.
--- NOTE | 2019-08-07 15:14 | NUR ---
PM GROUP PT DID NOT ATTEND AFTERNOON GROUP THERAPY. PT WAS IN BED NAPPING.
[2019-08-07 20:00] VITALS: BP 102/52
--- NOTE | 2019-08-07 23:51 | NUR ---
P-ISOLATIVE I-REDIRECTION WITH 1:1 THERAPEUTIC INTERVENTIONS AND PRESENT REALITY. EDUCATE AND ENCOURAGE MEDICATION COMPLIANCE R-PATIENT WITH NO SUICIDAL OR HOMICIDAL IDEATIONS. PATIENT WITH NO HALULCINATIONS OR DELUSIONS AT THIS TIME. PATIENT PROVIDED FLUIDS AT HS AND NOUIRSHMENT AT HS. PATIENT MEDICATION COMPLIANT AT HS. PATIENT SHOWERED THIS SHIFT. PATIENT WITH LIMITED INTERACTION WITH PEERS IN DINING AREA. PATIENT CONTINUES TO READ AND DO CROSSWORD PUZZLES AT HS. P-CONTINUE TO ENCOURAGE MEDICATION COMPLIANCE, CONTINUE TO PRESENT REALTIY, ENCOURAGE GROUP THERAPY WHILE AWAKE
--- NOTE | 2019-08-08 05:45 | NUR ---
Patient slept approx. 7 hours throughout shift. Q 15 minute safety checks continued and maintained.
--- NOTE | 2019-08-08 07:41 | NUR ---
Patient in dining room eating breakfast. Respirations easy and regular. Vital signs stable. No overt distress. Telehealth assessment with NINFA Zaman held this AM, updates provided. KENNEDY ALLISON
[2019-08-08 07:47] VITALS: BP 110/76
--- NOTE | 2019-08-08 08:30 | NUR ---
DR SESAY ON UNIT TO ASSESS PT, UPDATE PROVIDED.
--- NOTE | 2019-08-08 11:32 | NUR ---
AM GROUP PT PRESENT IN DINING ROOM DURING GROUP TIME, CHOOSING TO READ HER BIBLE AND DRINK COFFEE.
[2019-08-08 20:00] VITALS: BP 112/72
--- NOTE | 2019-08-08 23:33 | NUR ---
P-ISOLATIVE I-REDIRECTION WITH 1:1 THERAPEUTIC INTERVENTIONS. EDUCATE AND ENCOURAGE MEDICATION COMPLIANCE R-PATIENT WITH NO SUICIDAL OR HOMICIDAL IDEATIONS. PATIENT WITH NO HALLUCINATIONS OR DELUSIONS AT THIS TIME. PATIENT PROVIDED FLUIDS AT HS AND NOURISHMENT AT HS. PATIENT MEDICATION COMPLIANT AT HS. PATIENT WITH LIMITED INTERACTION WITH PEERS IN DINING AREA. PATIENT READING BIBLE AT HS. P-CONTINUE TO ENCOURAGE MEDICATION COMPLIANCE, ENCOURAGE GROUP THERAPY WHILE AWAKE
--- NOTE | 2019-08-09 05:56 | NUR ---
PATIENT SLEPT 8 HOURS OF UNINTERRUPTED SLEEP THROUGHOUT SHIFT. Q 15 MINUTE CHECKS MAINTAINED. 24 HR chart check completed.
--- NOTE | 2019-08-09 07:29 | NUR ---
Patient eating breakfast in dining room with peers. Respirations easy and regular. Vital signs stable. No overt distress. ROSY BURT PHMNP-BC updated on pt progress.
[2019-08-09 07:31] VITALS: BP 105/72
--- NOTE | 2019-08-09 08:50 | NUR ---
and team on unit to see pt at this time.
--- NOTE | 2019-08-09 09:20 | NUR ---
PT A&O X4. DENIES SADNESS, DEPRESSION, AND ANXIETY. STABLE MOOD. CALM AND INTERACTIVE WITH STAFF AND PEERS. NO HALLUCINATIONS OR DELUSIONS NOTED. MEDICATION COMPLAINT WITHOUT DIFFICULTY. PT READING BIBLE QUIETLY. NO METHODIST DELUSIONS NOTED. PT DID STATE TO THE SUPERVISOR ORNAMENTAL IRONWORKING THAT GOD WAS TALKING TO HER; HOWEVER, PATEINT APPEARS TO BE BASELINE. PT STATED THAT GOD WAS TELLING HER YOU ARE SAFE AND I WILL ALWAYS BE WITH YOU. PT STATED SHE IS NOT PARANOID HOWEVER BELIEVES PEOPLE ARE WATCHING HER LIKE SHE IS ON TELEVISION. NO PERSECUTORY COMMENTS HAVE BEEN MADE. NO FOI. PATIENT STATED SHE IS SLEEPING AND EATING WELL. NO FURTHER COMPLAINTS AT THIS TIME. PT AMBULATORY WITH A STEADY GAIT. NO C/O PAIN OR SIDE EFFECTS. SEE [facility] FLOWSHEETS FOR SPECIFIC MONITORING. PT CONTINUES TO REFUSE SKIN ASSESSMENT.
--- NOTE | 2019-08-09 13:18 | NUR ---
PT SHOWERED THIS AFTERNOON INDEPENDENTLY. REFUSED SKIN ASSESSMENT.
--- NOTE | 2019-08-09 16:02 | NUR ---
SHIFT CHART CHECK COMPLETED.
[2019-08-09 20:00] VITALS: BP 102/64
--- NOTE | 2019-08-09 23:33 | NUR ---
PATIENT ALERT AND ORIENTED. PATIENT WITH NO RESPIRATORY DISTRESS. PATIENT PROVIDED REDIRECTION WITH 1:1 THERAPEUTIC INTERVENTIONS PROVIDED. PATIENT PROVIDED EDUCATION AND ENCOURAGED MEDICATION COMPLIANCE. PATIENT WITH NO SUICIDAL OR HOMICIDAL IDEATIONS. PATIENT WITH NO HALLUCINATIONS OR DELUSIONS AT THIS TIME. PATIENT PROVIDED FLUIDS AT HS AND NOURISHMENT AT HS. PATIENT MEDICATION COMPLIANT AT HS. PATIENT AMBULATING ON UNIT WITH STEADY GAIT AND WITHOUT ASSISTIVE DEVICE. PATIENT SINGING AT THE TIME OF TAKING MEDICATIONS "IF YOU WANT IT, HERE IT IS, COME AND GET IT". PATIENT STATED "I THINK THAT MEDICINE FOR MY BOWEL WORKED AND I HAD A BOWEL MOVEMENT TODAY". PATIENT READING BIBLE AT HS. SEE [facility] FLOW SHEET FOR SPECIFIC MONITORING.
--- NOTE | 2019-08-10 05:52 | NUR ---
PATIENT SLEPT 7 HOURS OF INTERRUPTED SLEEP THROUGHOUT SHIFT. Q 15 MINUTE CHECKS MAINTAINED. 24 HR chart check completed.
[2019-08-10 07:24] VITALS: BP 105/56
--- NOTE | 2019-08-10 07:27 | NUR ---
Patient eating breakfast in dining room with peers. Respirations easy and regular. Vital signs stable. No overt distress. ROSY BURT PHMNP-BC updated on pt progress.
--- NOTE | 2019-08-10 09:06 | NUR ---
DR. SESAY ON UNIT TO ASSESS PATIENT.
--- NOTE | 2019-08-10 09:49 | NUR ---
PATIENT IS ALERT TO PERSON, PLACE, TIME AND SITUATION; ABLE TO VOICE NEEDS. MOOD IS STABLE, CALM DEMEANOR. DENIES ANY HALLUCINATIONS, DELUSIONS, HI/SI OR PAIN. MEDICATION COMPLIANT WITH EDUCATION PROVIDED. INDEPENDENT WITH ACTIVITIES OF DAILY LIVING, CONTINENT OF BOWEL AND BLADDER. SET UP FOR MEALS, INTAKES ARE GOOD WITH ADEQUATE FLUIDS. Q 15 MINUTE SAFETY CHECKS. DENIES ANY PARANOIA. CONTINUE TO MONITOR FOR HALLUCINATIONS, ADVENT DELUSIONS, PARANIOA. PROVIDE ONE ON ONE AND REDIRECTION NEEDED.
--- NOTE | 2019-08-10 11:55 | NUR ---
Treatment team meeting held this AM via the telephone with Ladonna Turner APPLICATION TRAINER, RN, and this DRAW BENCH OPERATOR HELPER-S. Plan is for pt to discharge tomorrow to [facility].
--- NOTE | 2019-08-10 11:59 | NUR ---
Spoke with Odilia Donis of [facility] to discuss pt discharge scheduled for tomorrow. Odilia confirmed that she spoke to pt's [facility] care case manager who plans on transporting pt to nursing home tomorrow. Odilia provided pharmacy contact info: [facility], phone [phone], fax [phone].
--- NOTE | 2019-08-10 13:21 | NUR ---
Pt pleasant this AM. Pt stated that she is feeling good and "positive." Pt inquired about her discharge. Informed pt that the plan remains that pt is to discharge tomorrow. Pt voiced understanding. Pt voiced no delusional content during interaction with this engineering technical writer.
[2019-08-10 20:00] VITALS: BP 107/65
--- NOTE | 2019-08-10 22:02 | NUR ---
PATIENT ALERT AND ORIENTED. PATIENT WITH NO RESPIRATORY DISTRESS. PATIENT PROVIDED REDIRECTION WITH 1:1 THERAPEUTIC INTERVENTIONS THROUGHOUT SHIFT. PATIENT PROVIDED EDUCATION AND ENCOURAGED MEDICATION COMPLIANCE. PATIENT WITH NO SUICIDAL OR HOMICIDAL IDEATIONS. PATIENT WITH NO HALLUCINATIONS OR DELUSIONS AT THIS TIME. PATIENT PROVIDED FLUIDS AT HS AND NOURISHMENT AT HS. PATIENT MEDICATION COMPLIANT AT HS. PATIENT AMBULATING ON UNIT WITH STEADY GAIT AND WITHOUT ASSISTIVE DEVICE. PATIENT INTERACTING WITH PEER IN DINING AREA. PATIENT READING READING BIBLE AT HS. SEE [facility] FLOW SHEET FOR SPECIFIC MONITORING.
--- NOTE | 2019-08-11 06:24 | NUR ---
Patient slept approx. 7 hours throughout shift with a few awakenings. Q 15 minute safety checks continued and maintained.
[2019-08-11 07:26] VITALS: BP 117/71
[2019-08-11] MEDS ORDERED: DIVALPROEX SOD250 MG PO (07:36)
--- NOTE | 2019-08-11 08:03 | NUR ---
SPOKE WITH DR ARAYA AT [phone] RE: PT DISCHARGE FOR TODAY AND MEDICAL MEDS NEEDING COMPLETED, NO FURTHER ISSUES AT THIS TIME.
--- NOTE | 2019-08-11 08:13 | NUR ---
SPOKE WITH DR ARAYA AND ADVISED THAT PT WILL NEEDS MEDICAL MEDS ESCRIBED TO PHARMACY DUE TO GOING TO A NEW FACILITY.
--- NOTE | 2019-08-11 08:32 | NUR ---
PT ALERT TO PERSON, PLACE AND TIME. PT MED COMPLIANT WITHOUT DIFFICULTY, MED EDUCATION PROVIDED. PT CALM, MOOD IS STABLE. PT REMAINS ISOLATIVE TO ROOM AT TIMES OR CHOOSES TO SIT IN DINING ROOM ALONE READING HER BIBLE, PER PT BASELINE. NO HALLUCIANTIONS OR DELUSIONS NOTED. PT DENIES ANY SUICIDAL THOUGHTS OR BEAHVIORS. PT AMBULATORY THROUGHOUT UNIT, GAIT STEADY. PT CONTINENT OF BOWEL AND BLADDER. NO SKIN ISSUES NOTED AT THIS TIME. PLAN IS TO MONITOR PT BEHAVIORS ON Q15 MIN SAFETY CHECKS AND PREPARE PT FOR DISCHARGE TODAY TO [facility].
--- NOTE | 2019-08-11 09:10 | NUR ---
DR SESAY AND TEAM ON UNIT TO ASSESS PT, UPDATE PROVIDED. PER DR SEASY THEY WILL PRINT SCRIPTS.
--- NOTE | 2019-08-11 09:57 | NUR ---
Treatment team meeting held this AM via phone with Ladonna Turner SHOEMAKER APPRENTICE, RN, and this LABORATORY TECH-S. Pt is to discharge today to [facility].
--- NOTE | 2019-08-11 10:56 | NUR ---
AM GROUP CROSSWORDS AND COLORING PT REFUSED TO PARTICIPATE IN GROUP CHOOSING TO SIT ALONE AND READ HER BIBLE.
--- NOTE | 2019-08-11 11:04 | NUR ---
Spoke with Pt. Pomology Teacher from [facility]. Transportation arranged with Pomology Teacher to supervisor boilermaking shop at ER entrance at 1:00 p.m. Pt. will follow with [facility] August 12 9:30 a.m.
--- NOTE | 2019-08-11 11:05 | NUR ---
NURSE TO NURSE REPORT GIVEN TO TYRELL MURRIETA AT [facility]. PT PICKUP TIME IS SCHEDULED FOR 1PM VIA CONSTRUCTION PROJECT COORDINATOR.
--- NOTE | 2019-08-11 11:57 | NUR ---
Spoke with Estephanie Cruz and confirmed that all was in place for pt to discharge today.
--- NOTE | 2019-08-11 13:04 | NUR ---
PT DISCHARGED TO [facility] VIA PRIVATE CARE ESCORTED BY SMALL KICK PRESS OPERATOR. PT BELONGINGS AND DC PACKET SENT WITH PT. NO FURTHER ORDERS AT THIS TIME.
--- NOTE | 2019-08-11 15:17 | NUR ---
Patient discharged today to [facility]. Follow-up will be with [facility] in [place], [place]. While at [facility], pt's paranoid delusions resolved. Pt was pleasant and cooperative. Pt had a tendency to sit by herself and read her Bible in the activity room but did participate in some of the programming.
--- NOTE | 2019-08-11 16:35 | NUR ---
TYRELL FROM [facility] CALLED AND STATED THAT [facility] WOULD NOT FILL PT SCRIPTS BECAUSE THEY WERE JUST FILLED ON THE . ADVISED THAT THE PT HAS BEEN HERE SINCE July AND WAS NOT DC UNTIL TODAY. PER [facility] THEY WILL CALL THE OTHER PHARMACY AND SPEAK WITH THEM.
--- NOTE | 2019-08-12 16:11 | NUR ---
TYRELL NURSE FROM [facility] CALLED IN FOR QUESTIONS RE: PT MEDICATIONS, PT DISCAHRGE MEDICATIONS REVIEWED WITH TYRELL.
== END 2019-08-11 13:02 | DRG 750 ==
LOC: 3N 11:57
PROVIDERS: Nurse Practitioner Women's Health; ADMIT Psychiatry & Neurology Psychiatry
DX: F20.0 Paranoid schizophrenia (principal); E13.9 Other specified diabetes mellitus without complications; F33.2 Major depressive disorder, recurrent severe without psychotic features; F41.9 Anxiety disorder, unspecified; I10 Essential (primary) hypertension; E78.5 Hyperlipidemia, unspecified; K59.00 Constipation, unspecified; G47.00 Insomnia, unspecified; Z79.84 Long term (current) use of oral hypoglycemic drugs; Z79.899 Other long term (current) drug therapy